=== PATIENT | male | born 1975 | race Caucasian/White ===

== ENCOUNTER 2021-09-24 11:48 | Emergency (ER) | payer MEDICARE, SELFPAY ==
[2021-09-24] VITALS (7 sets, daily range): BP systolic 148–156; BP diastolic 82–108; PULSE 72–84; RESP 14–17; TEMP 35.7; O2SAT 97; BMI 44.6
--- NOTE | 2021-09-24 12:18 | EKG12_ITS ---
Test Reason : MEDICAL CLEARNCE Blood Pressure : / mmHG Vent. Rate : 091 BPM Atrial Rate : 091 BPM P-R Int : 224 ms QRS Dur : 082 ms QT Int : 362 ms P-R-T Axes : 042 002 031 degrees QTc Int : 445 ms Sinus rhythm with 1st degree A-V block Otherwise normal ECG Confirmed by ELISHA CAMP, [employer] ([id number]), editor & co founder LYNN MAST ([id number]) on 09/26/2021 1:34:16 PM Referred By: SAY Confirmed By:ISSI TELLO MD
--- NOTE | 2021-09-24 12:19 | EDS_ITS ---
HPI HPI - Psych History of Present Illness Chief Complaint: Mental Health Narrative Narrative: Patient presents accompanied by police/escorted because of mental health reasons. He is having paranoid delusions and ideations. He states he was last admitted to a psychiatric facility few months ago. He feels that he has being gaslighted by certain people, trying to get him out of his environment. He also states that he bats that within 1 week that he will not be alive any longer. He denies any suicidal ideation. He denies any change in his appetite or increased insomnia or somnolence. He feels that people are out to get him. It is questionable on whether or not he has been compliant with any of his psychiatric meds because he states he only needs Eliquis for blood clots and his thyroid medication. [facility] Medical History (Updated 09/24/21 @ 13:30 by Ro Obrien) Anxiety Depression DVT (deep venous thrombosis) Hypothyroid Substance abuse Home Medications apixaban [Eliquis] 5 mg PO BID 09/24/21 [History Last Taken Unknown] levothyroxine [Synthroid] 125 mcg PO DAILY 09/24/21 [History Last Taken Unknown] Allergy/AdvReac Type Severity Reaction Status Date / Time No Known Allergies Allergy Verified 09/24/21 11:52 Surgical History (Updated 09/24/21 @ 12:31 by Ro Obrien) Hx of tonsillectomy Social History Smoking Status: Current every day smoker tobacco type: cigarettes ROS ROS ED ROS Narrative Constitutional: No fever, no chills. HEENT: No sore throat. No neck pain. No loss of vision. No rhinorrhea. Cardiovascular: No chest pain. No palpitations. No pedal edema. Respiratory: No cough, no shortness of breath. Abdominal: No abdominal pain. No nausea. No vomiting. Genitourinary: No dysuria. No hematuria. Musculoskeletal: No myalgias. No arthralgias. Neurologic: No headaches. No dizziness. No lightheadedness. Skin: No rash. No change in color. Psychiatric: No depression. No anxiety. Positive paranoia. Feels as if people are out to get him and remove him from his environment. EXAM Physical Exam Narrative Exam Narrative: Afebrile. Vital signs noted. HEENT: Normocephalic. Atraumatic. PERRL, EOMI. Neck soft and supple. No point tenderness or step off. Cardiovascular: Regular rate and rhythm. No murmurs, rubs, or gallops appreciated. Respiratory: No tachypnea. Lungs clear to auscultation bilaterally. Gastrointestinal: Abdomen soft, nontender, with normoactive bowel sounds. No rebound or guarding. Neurological: Awake. Alert. Nonfocal, nonlateralizing. Skin: No rash. Normal color. No pallor. Musculoskeletal: No pedal edema. Full range of motion extremities. Psychiatric: Positive paranoid delusions. Feels as if he will not be alive within 1 week. Const Vital Signs: 09/24/21 11:49 Temperature 96.2 F L Temperature Source Temporal Pulse Rate 84 Respiratory Rate 16 Blood Pressure 156/108 H Blood Pressure Mean 124 Pulse Ox 97 Oxygen Delivery Method Room Air MDM MDM MDM Narrative Medical decision making narrative: Medical screening labs will be obtained including TSH as he has a thyroid disorder, will also obtain an EKG along with his alcohol level and urine for drugs of abuse. His laboratory work is grossly unremarkable. Ethyl alcohol is her for amphetamines, methamphetamines, and cannabinoids. At this point in time, I do feel that he is medically cleared for evaluation by crisis. Currently, he is in stable condition, awaiting their evaluation. Of note, the patient became more psychotic, and agitated. He was administered Geodon 20 mg intramuscularly. Additionally, I was called to the room to evaluate his right lower extremity redness. He states that he thinks he has an infection again, however I note chronic skin changes of his right lower extremity. He states he has had problems with his right lower extremity for years. He thought his right hand was reddened and was starting to get infected. Upon inspection, there is mild hyperemia but no purulence or fluctuance. He was given 1 cephalexin tablet here in the emergency department. I do not feel that he has a full-blown cellulitis of his right lower extremity as he has a normal white count of 6.5. Patient will be signed out to the oncoming physician, Dr. Francesco العراقي, to make disposition on this patient which is transfer to a psychiatric facility after crisis intervention. Currently he is in stable condition. Lab Data Attestation: I reviewed the patient's lab results. Labs: Laboratory Results - last 24 hr 09/24/21 09/24/21 09/24/21 13:00 13:00 13:00 WBC 6.5 RBC 4.33 L Hgb 14.4 Hct 41.7 MCV 96.3 H MCH 33.3 H MCHC 34.5 RDW Std Deviation 47.9 H RDW Coeff of Hero 13.3 Plt Count 276 MPV 9.9 Immature Gran % (Auto) 0.500 Neut % (Auto) 66.3 Lymph % (Auto) 24.7 Griggs % (Auto) 6.3 Eos % (Auto) 1.4 Baso % (Auto) 0.8 Absolute Neuts (auto) 4.3 Absolute Lymphs (auto) 1.60 Nucleated RBC % 0 Sodium 137 Potassium 4.1 Chloride 107 Carbon Dioxide 24.0 Anion Gap 6 BUN 13 Creatinine 1.09 Estim Creat Clear Calc 92.11 Est GFR (MDRD) Af Amer 94 Est GFR (MDRD) Non-Af 78 BUN/Creatinine Ratio 11.9 Glucose 83 Calcium 9.4 TSH 1.81 Urine Opiates Screen Urine Methadone Screen Ur Barbiturates Screen Ur Phencyclidine Scrn Ur Amphetamines Screen U Methamphetamin-MDMA U Benzodiazepines Scrn Urine Cocaine Screen U Cannabinoids Screen Ur Drug Screen Comment Ethyl Alcohol < 3.0 09/24/21 13:50 WBC RBC Hgb Hct MCV MCH MCHC RDW Std Deviation RDW Coeff of Hero Plt Count MPV Immature Gran % (Auto) Neut % (Auto) Lymph % (Auto) Griggs % (Auto) Eos % (Auto) Baso % (Auto) Absolute Neuts (auto) Absolute Lymphs (auto) Nucleated RBC % Sodium Potassium Chloride Carbon Dioxide Anion Gap BUN Creatinine Estim Creat Clear Calc Est GFR (MDRD) Af Amer Est GFR (MDRD) Non-Af BUN/Creatinine Ratio Glucose Calcium TSH Urine Opiates Screen NEGATIVE Urine Methadone Screen NEGATIVE Ur Barbiturates Screen NEGATIVE Ur Phencyclidine Scrn NEGATIVE Ur Amphetamines Screen POSITIVE H U Methamphetamin-MDMA POSITIVE H U Benzodiazepines Scrn NEGATIVE Urine Cocaine Screen NEGATIVE U Cannabinoids Screen POSITIVE H Ur Drug Screen Comment Ethyl Alcohol Discharge Plan Triage Chief Complaint: Mental Health ED Provider: Lavelle Tarango Dx/Rx/DC Orders Prescriptions: No Action levothyroxine [Synthroid] 125 mcg Tablet 125 mcg PO DAILY RF: 0 Eliquis 5 mg Tablet 5 mg PO BID RF: 0 Primary Care Provider: Care Physician,No Primary
--- NOTE | 2021-09-24 12:47 | NURSING ---
NO OLD EKGS
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
[2021-09-24 13:18] LABS: Absolute Neutrophil Count 4.3 X10^3/uL (2.0-7.7); Basophil# 0.05 X10^3/uL; Basophil% 0.8 % (0-1); Eosinophil# 0.09 X10^3/uL; Eosinophils% 1.4 % (0-5); Hematocrit 41.7 % (40-54); Hemoglobin 14.4 g/dL (13.0-16.5); Lymphocyte % 24.7 % (19-41); Mean Corp Hgb Conc 34.5 g/dL (32-36); Mean Corpuscular Hgb 33.3 pg (27.0-32.0); Mean Corpuscular Volume 96.3 fL (80-94); Mean Platelet Vol. 9.9 fl (6.2-12.0); Monocyte# 0.41 X10^3/uL; Monocyte% 6.3 % (0-10); NRBC Flagged by Analyzer 0 % (0-5); Neutrophil # 4.29 X10^3/uL (2.7-7.7); Neutrophil % 66.3 % (47-70); Platelet Count 276 K/mm3 (150-450); RBC Distribution Width CV 13.3 % (11.6-14.6); RBC Distribution Width SD 47.9 fl (35.1-43.9); Red Blood Count 4.33 M/mm3 (4.6-6.2); White Blood Count 6.5 K/mm3 (4.4-11.0)
[2021-09-24 13:34] LABS: Alcohol, Blood (Medical)-Serum < 3.0 mg/dL
[2021-09-24 13:38] LABS: Anion Gap 6 (5-15); BUN 13 mg/dL (7-18); BUN/Creat Ratio 11.9 RATIO (10-20); Calcium,Total 9.4 mg/dL (8.5-10.1); Chloride 107 mmol/L (98-107); Creatinine, Serum 1.09 mg/dL (0.70-1.30); EST Glomerular Filtration Rate 78 mL/min (>60); Est Glom Filt Rate - Afr Amer 94 mL/min (>60); Estimated Creatinine Clearance 92.11 ml/min; Glucose 83 mg/dL (74-106); Potassium 4.1 mmol/L (3.5-5.1); Sodium Level 137 mmol/L (136-145); Thyroid Stim Hormone (TSH) 1.81 uIU/mL (0.358-3.74)
[2021-09-24 14:10] LABS: Amphetamine Urine VISTA POSITIVE (<1000 ng/mL); Barbiturate Urine VISTA NEGATIVE (< 200 ng/mL); Benzodiazepine Urine VISTA NEGATIVE (< 200 ng/mL); Cocaine Urine VISTA NEGATIVE (< 300 ng/mL); Ecstacy Urine VISTA POSITIVE (< 500 ng/mL); Methadone Urine VISTA NEGATIVE (< 300 ng/mL); PCP Urine VISTA NEGATIVE (< 25 ng/mL); THC Urine VISTA POSITIVE (< 50 ng/mL); Vista UDS pH Range 6
--- NOTE | 2021-09-24 14:39 | ED.RN ---
PT CALLED THIS RN TO ROOM, STATES HE IS CONCERNED THERE WILL BE TROUBLE. STATES THERE IS A NURSE OR DOCTOR WORKING AT THIS HOSPITAL WHO IS WITH MY BABY. PT CONCERNED THIS STAFF MEMBER WILL LOCATE HIM AND BE UPSET WITH HIM.
[2021-09-24] MEDS: Ziprasidone IM 20 MG/ML VIAL IM (15:31)
[2021-09-24] MEDS: Cephalexin 250 MG Capsule 500 MG PO (15:34)
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
--- NOTE | 2021-09-24 19:10 | CM.ED ---
SRINIVASA was advised of patient being brought to the ED by voice mail left for this lead technical writer from Kaci at [facility]. SRINIVASA met with Britany in registration. Britany stated that patient has no insurance and she verified that patient has no medicaid HMO. SRINIVASA called Kaci at Crisis. Advised her of patient not having insurance. SRINIVASA faxed referral information to [facility]. SRINIVASA updated Crisis that patient has become increasingly agitated. Kaci asked if this could be a phone interview or live in person interview. Staff advised that it is more appropriate for live in person interview. However, at this time patient was given medication to calm him down in his agitated state. Kaci said that Irene will be in to see patient in 45 minutes. SRINIVASA received call from Irene at [facility]. She inquired as to the status of patient. Patient is sleeping. SRINIVASA will continue to update Irene. SIRNIVASA spoke to Ro RN. Patient is still asleep. SRINIVASA to watch status of patient Linnea PEREZ
--- NOTE | 2021-09-24 21:03 | CM.ED ---
SRINIVASA spoke to RN. Patient is still asleep as of this time. SRINIVASA updated Irene from Crisis that patient is still asleep. SRINIVASA updated RN and twx operator. Linnea PEREZ
[2021-09-25] VITALS (8 sets, daily range): BP systolic 130–132; BP diastolic 79–82; PULSE 85–96; RESP 14–18; O2SAT 98–100
--- NOTE | 2021-09-25 08:23 | NURSING ---
CALLED [facility]. LEFT MESSAGE FOR DIPIKA TO CALL US BACK
--- NOTE | 2021-09-25 08:23 | ED.RN ---
PT AWAKE AND ALERT, EATING BREAKFAST. TALKS CALMLY WITH THIS RN. HOA PAGED FOR EVALUATION
--- NOTE | 2021-09-25 08:31 | NURSING ---
DIPIKA, SHAHZAD, CALLED. SHE WILL BE COMING HERE TO SEE PATIENT
--- NOTE | 2021-09-25 09:20 | NURSING ---
DIPIKA, CRISIS, HERE TO SEE PATIENT
--- NOTE | 2021-09-25 09:52 | ED.RN ---
CRISES REMAINS IN ROOM TALKING WITH PATIENT
--- NOTE | 2021-09-25 10:12 | ED.RN ---
DIPIKA HECK [facility] [place] PLANNING ON PLACEMENT IN A DUAL DIAGNOSIS UNIT FOR PT BENEFIT
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
--- NOTE | 2021-09-25 11:59 | CM.ED ---
Social Work Telephone call from Elidia toure. Elidia request for clinical information to begin placement to inpatient psychiatric facility. Elidia reports that patient will be pending at [facility]. Clinical information faxed. Medical team updated. Carmella HU, GAYLE
--- NOTE | 2021-09-25 12:56 | NURSING ---
NO OLD EKGS
--- NOTE | 2021-09-25 14:52 | NURSING ---
ACCEPTED AT [facility]
[2021-09-25] MEDS: Cephalexin 250 MG Capsule 500 MG PO (15:49)
--- NOTE | 2021-09-25 15:57 | ED.RN ---
attempted to call report to [facility] for report, was transferred to phone with no voicemail. will attempt again,
== END 2021-09-25 15:57 ==
PROVIDERS: Emergency Provider Emergency Medicine; Visit Provider Emergency Medicine
DX: F17.210 Nicotine dependence, cigarettes, uncomplicated (principal); F22 Delusional disorders; E03.9 Hypothyroidism, unspecified; Z86.718 Personal history of other venous thrombosis and embolism; Z79.899 Other long term (current) drug therapy; Z79.01 Long term (current) use of anticoagulants
CPT/HCPCS: 80048; 80307; 82077; 84443; 85025; 87426; 93005; 96372; 99285; J3486